=== PATIENT | female | born 1970 | race Caucasian/White ===

== ENCOUNTER 2024-08-07 14:24 | Outpatient (CLI) | payer OTHER | END 2024-08-07 14:31 | disposition home or self-care (01) | LOC: MRI 14:24 | DX: F01.50 Vascular dementia, unspecified severity, without behavioral disturbance, psychotic disturbance, mood disturbance, and anxiety (principal); F03.90 Unspecified dementia, unspecified severity, without behavioral disturbance, psychotic disturbance, mood disturbance, and anxiety | CPT/HCPCS: 70551 ==